=== PATIENT | male | born 1965 | race Caucasian/White ===

== ENCOUNTER 2018-01-19 11:31 | Outpatient (CLI) | payer SELFPAY | END 2018-01-19 11:32 | disposition home or self-care (01) | LOC: LAB 11:31 | DX: Z01.89 Encounter for other specified special examinations (principal) | CPT/HCPCS: 36415 ==

== ENCOUNTER 2018-03-07 08:38 | Outpatient (CLI) | payer SELFPAY | END 2018-03-07 08:39 | disposition home or self-care (01) | LOC: LAB 08:38 | DX: Z01.89 Encounter for other specified special examinations (principal) | CPT/HCPCS: 36415 ==

== ENCOUNTER 2018-04-04 07:59 | Outpatient (CLI) | payer SELFPAY | END 2018-04-04 08:00 | disposition home or self-care (01) | LOC: LAB 07:59 | DX: Z01.89 Encounter for other specified special examinations (principal) | CPT/HCPCS: 36415 ==